=== PATIENT | female | born 1970 | race Caucasian/White ===

== ENCOUNTER → 2019-09-19 17:50 | Outpatient (BNVA) | payer MEDICARE, MEDICAID, SELFPAY | PROVIDERS: Family Provider Nurse Practitioner Family; PCP Nurse Practitioner Family; Visit Provider Nurse Practitioner Family | DX: E11.21 Type 2 diabetes mellitus with diabetic nephropathy (principal); E55.9 Vitamin D deficiency, unspecified; E03.9 Hypothyroidism, unspecified | CPT/HCPCS: 80053; 80061; 82044; 82306; 83036; 84443; 85025 ==

== ENCOUNTER → 2020-02-20 11:57 | Outpatient (BNVA) | payer MEDICARE, MEDICAID, SELFPAY | PROVIDERS: Family Provider Nurse Practitioner Family; PCP Nurse Practitioner Family; Visit Provider Nurse Practitioner Family | DX: E03.9 Hypothyroidism, unspecified (principal); E11.21 Type 2 diabetes mellitus with diabetic nephropathy; E55.9 Vitamin D deficiency, unspecified; M54.5 Low back pain; G89.29 Other chronic pain; G47.00 Insomnia, unspecified; F41.9 Anxiety disorder, unspecified; F32.9 Major depressive disorder, single episode, unspecified; J30.9 Allergic rhinitis, unspecified; E78.5 Hyperlipidemia, unspecified; K21.9 Gastro-esophageal reflux disease without esophagitis; I10 Essential (primary) hypertension; H91.93 Unspecified hearing loss, bilateral | CPT/HCPCS: 80053; 80061; 82306; 83036; 84443; 85025 ==

== ENCOUNTER → 2020-06-26 16:38 | Outpatient (BNVA) | payer MEDICARE, MEDICAID, SELFPAY | PROVIDERS: Family Provider Nurse Practitioner Family; PCP Nurse Practitioner Family; Visit Provider Nurse Practitioner Family | DX: E11.21 Type 2 diabetes mellitus with diabetic nephropathy (principal); E55.9 Vitamin D deficiency, unspecified; M54.5 Low back pain; G89.29 Other chronic pain; G47.00 Insomnia, unspecified | CPT/HCPCS: 80053; 80061; 82306; 83036; 85025 ==

== ENCOUNTER → 2020-10-23 10:48 | Outpatient (BNVA) | payer MEDICARE, MEDICAID, SELFPAY | PROVIDERS: Family Provider Nurse Practitioner Family; PCP Nurse Practitioner Family; Visit Provider Nurse Practitioner Family | DX: E11.21 Type 2 diabetes mellitus with diabetic nephropathy (principal); J30.9 Allergic rhinitis, unspecified; M54.5 Low back pain; E55.9 Vitamin D deficiency, unspecified; G47.00 Insomnia, unspecified; G89.29 Other chronic pain; E03.9 Hypothyroidism, unspecified | CPT/HCPCS: 80053; 80061; 82043; 82306; 83036; 84443; 85025 ==

== ENCOUNTER → 2021-01-16 13:50 | Outpatient (BNVA) | payer MEDICARE, MEDICAID, SELFPAY | PROVIDERS: Family Provider Nurse Practitioner Family; PCP Nurse Practitioner Family; Visit Provider Nurse Practitioner Family | DX: E11.21 Type 2 diabetes mellitus with diabetic nephropathy (principal); E03.9 Hypothyroidism, unspecified; E55.9 Vitamin D deficiency, unspecified; K21.9 Gastro-esophageal reflux disease without esophagitis; F41.9 Anxiety disorder, unspecified; E78.5 Hyperlipidemia, unspecified; F32.9 Major depressive disorder, single episode, unspecified; J30.9 Allergic rhinitis, unspecified; G47.00 Insomnia, unspecified; I10 Essential (primary) hypertension; Z68.41 Body mass index [BMI] 40.0-44.9, adult; Z71.89 Other specified counseling | CPT/HCPCS: 80053; 80061; 82306; 83036; 84443; 85025 ==

== ENCOUNTER → 2021-04-09 13:30 | Outpatient (BNVA) | payer MEDICARE, MEDICAID, SELFPAY | PROVIDERS: Family Provider Nurse Practitioner Family; PCP Nurse Practitioner Family; Visit Provider Nurse Practitioner Family | DX: E03.9 Hypothyroidism, unspecified (principal); E11.21 Type 2 diabetes mellitus with diabetic nephropathy; E55.9 Vitamin D deficiency, unspecified | CPT/HCPCS: 80053; 80061; 82306; 83036; 84443; 85025 ==

== ENCOUNTER → 2021-07-24 11:51 | Outpatient (BNVA) | payer MEDICARE, MEDICAID, SELFPAY | PROVIDERS: Family Provider Nurse Practitioner Family; PCP Nurse Practitioner Family; Visit Provider Nurse Practitioner Family | DX: E11.21 Type 2 diabetes mellitus with diabetic nephropathy (principal); E55.9 Vitamin D deficiency, unspecified; E03.9 Hypothyroidism, unspecified; F41.0 Panic disorder [episodic paroxysmal anxiety]; G47.00 Insomnia, unspecified; E78.5 Hyperlipidemia, unspecified; F41.9 Anxiety disorder, unspecified; F32.9 Major depressive disorder, single episode, unspecified; J30.9 Allergic rhinitis, unspecified; I10 Essential (primary) hypertension; K21.9 Gastro-esophageal reflux disease without esophagitis; G89.29 Other chronic pain; Z68.41 Body mass index [BMI] 40.0-44.9, adult | CPT/HCPCS: 80053; 80061; 82306; 83036; 84443; 85025 ==

== ENCOUNTER → 2022-01-06 11:22 | Outpatient (BNVA) | payer MEDICARE, MEDICAID, SELFPAY | PROVIDERS: Family Provider Nurse Practitioner Family; PCP Nurse Practitioner Family; Visit Provider Nurse Practitioner Family | DX: F41.0 Panic disorder [episodic paroxysmal anxiety] (principal); E11.21 Type 2 diabetes mellitus with diabetic nephropathy; R00.2 Palpitations; F41.9 Anxiety disorder, unspecified; F32.9 Major depressive disorder, single episode, unspecified; E78.5 Hyperlipidemia, unspecified; K21.9 Gastro-esophageal reflux disease without esophagitis; I10 Essential (primary) hypertension; G62.9 Polyneuropathy, unspecified; G47.00 Insomnia, unspecified; M54.9 Dorsalgia, unspecified; G89.29 Other chronic pain; J30.9 Allergic rhinitis, unspecified; G25.81 Restless legs syndrome; R26.81 Unsteadiness on feet; H91.93 Unspecified hearing loss, bilateral; E03.9 Hypothyroidism, unspecified; E55.9 Vitamin D deficiency, unspecified | CPT/HCPCS: 80053; 80061; 83036 ==

== ENCOUNTER → 2022-04-13 08:41 | Outpatient (BNVA) | payer MEDICARE, MEDICAID, SELFPAY | PROVIDERS: Family Provider Nurse Practitioner Family; PCP Nurse Practitioner Family; Visit Provider Nurse Practitioner Family | DX: E11.21 Type 2 diabetes mellitus with diabetic nephropathy (principal); E78.5 Hyperlipidemia, unspecified; E03.9 Hypothyroidism, unspecified; E55.9 Vitamin D deficiency, unspecified; F32.9 Major depressive disorder, single episode, unspecified; G25.81 Restless legs syndrome; G62.9 Polyneuropathy, unspecified; F41.0 Panic disorder [episodic paroxysmal anxiety]; R00.2 Palpitations; I10 Essential (primary) hypertension; G47.00 Insomnia, unspecified | CPT/HCPCS: 80053; 80061; 83036 ==

== ENCOUNTER → 2022-07-14 13:11 | Outpatient (BNVA) | payer MEDICARE, MEDICAID, SELFPAY | PROVIDERS: Family Provider Nurse Practitioner Family; PCP Nurse Practitioner Family; Visit Provider Nurse Practitioner Family | DX: E55.9 Vitamin D deficiency, unspecified (principal); E78.5 Hyperlipidemia, unspecified; E03.9 Hypothyroidism, unspecified; I10 Essential (primary) hypertension; F41.9 Anxiety disorder, unspecified; G25.81 Restless legs syndrome; E11.21 Type 2 diabetes mellitus with diabetic nephropathy; E11.40 Type 2 diabetes mellitus with diabetic neuropathy, unspecified; G89.29 Other chronic pain; F41.0 Panic disorder [episodic paroxysmal anxiety]; G47.00 Insomnia, unspecified | CPT/HCPCS: 80053; 80061; 82306; 83036; 84443 ==

== ENCOUNTER → 2022-10-28 11:04 | Outpatient (BNVA) | payer MEDICARE, MEDICAID, SELFPAY | PROVIDERS: Family Provider Nurse Practitioner Family; PCP Nurse Practitioner Family; Visit Provider Nurse Practitioner Family | DX: R52 Pain, unspecified (principal) | CPT/HCPCS: 73030 ==

== ENCOUNTER → 2023-01-12 11:26 | Outpatient (BNVA) | payer MEDICARE, MEDICAID, SELFPAY | PROVIDERS: Family Provider Nurse Practitioner Family; PCP Nurse Practitioner Family; Visit Provider Nurse Practitioner Family | DX: G62.9 Polyneuropathy, unspecified (principal); E78.5 Hyperlipidemia, unspecified; F41.9 Anxiety disorder, unspecified; E03.9 Hypothyroidism, unspecified; E11.21 Type 2 diabetes mellitus with diabetic nephropathy; E55.9 Vitamin D deficiency, unspecified; I10 Essential (primary) hypertension | CPT/HCPCS: 80053; 80061; 82306; 83036; 84443 ==

== ENCOUNTER 2023-04-12 14:42 | Emergency (ER) | payer MEDICARE, MEDICAID, SELFPAY ==
[2023-04-12 14:47] VITALS: BP 113/78; PULSE 102; RESP 16; TEMP 37.1; O2SAT 97; BMI 38.6
--- NOTE | 2023-04-12 15:18 | XRR_ITS ---
PROCEDURE INFORMATION: Exam: XR Nasal Bones Exam date and time: 04/12/2023 3:33 PM Age: 53 years old Clinical indication: Injury or trauma; Fall; Blunt trauma (contusions or hematomas); Nose; Additional info: Fall/injury TECHNIQUE: Imaging protocol: XR of the nasal bones. Views: Minimum of 3 views COMPARISON: No relevant prior studies available. FINDINGS: Sinuses: Well aerated. No opacification. Bones/joints: No fracture. Soft tissues: Unremarkable. XR/XR nasal bones min 3V [id number] IMPRESSION: Unremarkable.
--- NOTE | 2023-04-12 15:19 | ED_ITS ---
HPI - Fall General: Chief Complaint: Epistaxis Stated Complaint: fall, face injury Time Seen by Provider: 04/12/23 15:03 Source: patient Mode of arrival: ambulatory Limitations: no limitations History of Present Illness: Patient is a 53-year-old female presents to ED today with a complaint of a nose injury/fall. Patient states she has chronically poor vision which causes her to fall. She states on cloudy days, like today, she can hardly see where she is going. Patient states she fell secondary to this today and struck her nose. She states the nose bled for a small amount of time before subsiding. She denies any other injuries or complaints related to the fall. Denies chest pain, shortness of breath, difficulty breathing, palpitations, or presyncopal feelings. Last tetanus is unknown. MD complaint: fall Onset (ago): hour(s) Fall from: standing Fall witnessed: yes, by family Place fall occurred: street Loss of consciousness: None Prolonged down time: no Symptoms prior to fall: none Context: tripped/slipped Location of injury: face (nose) Associated symptoms-after fall: Reports no associated symptoms; Denies abdominal pain, chest pain, headache(s), hematuria, lightheadedness or neck pain Review of Systems Eyes: Reports: change in vision (chronically poor vision); Denies: blurry vision, photophobia, eye discharge, floaters or seeing flashes ENMT: Reports: epistaxis (nose bleed after injury-subsided now) and sinus pain (nose pain/injury); Denies: throat pain, odynophagia, ear or mastoid pain or ear discharge Card: Denies: chest pain, palpitations, lightheadedness, syncope or pre- syncope Resp: Denies: dyspnea or pain on inspiration GI: Denies: abdominal pain : Denies: flank pain or hematuria Musc: Denies: neck pain, back pain, extremity pain or joint pain Neuro: Denies: headache(s), numbness in extremities, weakness in extremities, sensory changes or dizziness PFSH ED PFSH: Medical History Anxiety Back pain, chronic Chronic GERD Diabetes mellitus with nephropathy Enrolled in chronic care management Essential hypertension Glaucoma Hearing loss of both ears Hyperlipidemia Morbid obesity Post-menopausal Psoriasis Vitamin D deficiency Family History Father Diabetes Arthritis Heart disease Social History Smoking and tobacco/nicotine status: never used tobacco/nicotine Second hand smoke exposure: No Alcohol intake: never Substance/Drug Use: never Caregiver/support person: Yes Lives independently: Yes Household members: none Marital status: Single service: No Current occupational status: disabled Current gender identity: Female Special johnie needs: No Agree to transfusion: Yes Female Reproductive History: Para: 0 Spontaneous abortions: No Date of menopause: 05/24/99 Physical Exam Const: COMMON NORMALS: no acute distress, patient oriented x3, no limitations, alert and well nourished GENERAL APPEARANCE: cooperative NUTRITIONAL APPEARANCE: obese ORIENTATION/CONSCIOUSNESS: Yes awake, Yes oriented to person, Yes oriented to place and Yes oriented to time HENMT: COMMON NORMALS: normocephalic, atraumatic, external ears normal and TM's normal bilaterally HEAD & SCALP: normal to inspection, normocephalic and atraumatic; no Charles's sign, no hematoma and no raccoon eyes FACE & SINUS: other (nasal contusion; no bony deformity noted) FACE & SINUS IMAGES: 1. 2. small non-repairable lacerations NOSE: Normal nares present, Normal septum present and No nasal discharge present EXTERNAL EAR: Yes external ears normal TYMPANIC MEMBRANE: TM's normal bilaterally MOUTH: other (no intraoral injuries noted) Eye: COMMON NORMALS: Equal, round and reactive pupils present and EOMs intact bilaterally GENERAL EYE: appearance normal, both eyes and all related structures and normal light reflex PUPIL: Yes Equal, round and reactive pupils present DIRECT OPHTHALMOSCOPY: Yes normal light reflex Neck/C-Spine: COMMON NORMALS: full ROM GENERAL: Yes normal visual inspection CERVICAL SPINE: Yes cervical ROM normal, No pain with cervical ROM, No Cervical spine tenderness, No step off deformity and No Paracervical muscle tenderness Chest: COMMONS NORMALS: normal inspection of the chest and normal palpation of entire chest wall Resp: COMMON NORMALS: normal respiratory effort and clear to auscultation bilaterally AUSCULTATION: clear to auscultation bilaterally Cardio: COMMON NORMALS: regular rate and regular rhythm RATE: regular rate RHYTHM: regular rhythm GI: COMMON NORMALS: Normal to inspection, nondistended, normoactive bowel sounds present, Soft to palpation, non-tender, No hepatosplenomegaly present and no masses INSPECTION: Yes normal to inspection and No abdominal wall ecchymosis AUSCULTATION: Yes normoactive bowel sounds PALPATION: Yes Soft to palpation and Yes No hepatosplenomegaly present Back/Pelvis: COMMON NORMALS: thoracic and lumbar spine normal to inspection, no thoracic nor lumbar tenderness and thoraco-lumbar ROM normal Extremity: COMMON NORMALS: normal to inspection and full ROM GENERAL: Yes normal exam except as noted Neuro: AJAY COMA SCALE: document [facility] findings [place] coma scale eye opening: Spontaneous [place] coma scale verbal response: Orientated Ajay coma scale motor response: Obey commands [place] coma scale total score: 15 COMMON NORMALS: patient oriented x3, CN's II-XII intact bilaterally, moves all extremities, no focal motor deficits, no sensory deficits noted and gait normal SENSORIUM/ORIENTATION: Yes alert, Yes oriented to person, Yes oriented to place and Yes oriented to time SPEECH: speech normal GAIT: Yes Normal gait present Skin: COMMON NORMALS: no rashes or lesions noted GENERAL SKIN EXAM: no rashes or lesions noted TRAUMA: no lacerations or abrasions Course Vital Signs: Vital signs: Vital Signs Temperature 98.8 F 04/12/23 14:47 Pulse Rate 102 H 04/12/23 14:47 Respiratory Rate 16 04/12/23 14:47 Blood Pressure 113/78 04/12/23 14:47 Pulse Oximetry 97 04/12/23 14:47 Oxygen Delivery Me thod Room Air 04/12/23 14:47 MDM - Fall Medical Decision Making XR negative. Will be allowed discharge. Tetanus was updated. Medical Records I reviewed the patient's medical records. Lab Data Radiology Impressions Nasal Bones X-Ray 04/12/23 15:18 IMPRESSION: Unremarkable. All radiology interpretation(s) finalized by discharge Discharge Plan Discharge Patient Disposition: Home Clinical Impression: Contusion of nose Qualifiers: Encounter type: initial encounter Qualified Code(s): S00.33XA - Contusion of nose, initial encounter Condition: Stable Prescriptions: No Action aspirin [Adult Low Dose Aspirin] 81 mg tablet,delayed release (DR/EC) 81 mg PO ONCE (DME) cane Device See Rx Instructions .Route Qty: 1 0RF Rx Instructions: As directed diazepam [Valium] 5 mg tablet 5 mg PO BID PRN (Reason: anxiety) Qty: 20 0RF albuterol sulfate 90 mcg/actuation HFA aerosol inhaler See Rx Instructions .ROUTE .COMPLEX Qty: 8.5 2RF Dose Instruction: inhale TWO puffs into lungs EVERY 6 HOURS NEEDED FOR SHORTNESS OF BREATH OR wheezing Rx Instructions: inhale TWO puffs into lungs EVERY 6 HOURS NEEDED FOR SHORTNESS OF BREATH OR wheezing atorvastatin 20 mg tablet 20 mg PO DAILY 90 Days Qty: 90 1RF betamethasone dipropionate 0.05 % cream 1 applic TOPICAL BID PRN (Reason: skin irritation) Qty: 45 3RF (DME) OneTouch Ultra Test Strip See Rx Instructions .ROUTE .COMPLEX Qty: 100 11RF Dose Instruction: USE TO test TWICE DAILY AND NEEDED FOR hypoglycemia DIRECTED Rx Instructions: USE TO test TWICE DAILY AND NEEDED FOR hypoglycemia DIRECTED (DME) blood-glucose meter [OneTouch Ultra2 Meter] Kit See Rx Instructions .ROUTE .MEDSUPPLY Qty: 1 0RF Rx Instructions: To test 2 times per day and prn hpoglycemia brimonidine 0.15 % drops See Rx Instructions .ROUTE .COMPLEX Qty: 10 2RF Dose Instruction: instill ONE DROP in BOTH eyes TWICE DAILY Rx Instructions: instill ONE DROP in BOTH eyes TWICE DAILY buspirone 10 mg tablet 10 mg PO TID 90 Days Qty: 270 1RF cyclobenzaprine 10 mg tablet See Rx Instructions .ROUTE .COMPLEX Qty: 90 1RF Dose Instruction: TAKE ONE TABLET BY MOUTH THREE TIMES DAILY NEEDED FOR MUSCLE SPASMS Rx Instructions: TAKE ONE TABLET BY MOUTH THREE TIMES DAILY NEEDED FOR MUSCLE SPASMS Farxiga 10 mg tablet 10 mg PO DAILY 90 Days Qty: 90 1RF diclofenac sodium [Arthritis Pain (diclofenac)] 1 % gel 4 g topical QID Qty: 100 2RF Rx Instructions: apply to AREA NEEDED. diclofenac sodium 75 mg tablet,delayed release (DR/EC) See Rx Instructions .ROUTE .COMPLEX Qty: 60 2RF Dose Instruction: TAKE ONE TABLET BY MOUTH TWICE DAILY NEEDED FOR PAIN Rx Instructions: TAKE ONE TABLET BY MOUTH TWICE DAILY NEEDED FOR PAIN famotidine 20 mg tablet 20 mg PO BID 90 Days Qty: 180 1RF fluticasone propionate 50 mcg/actuation spray,suspension See Rx Instructions .ROUTE .COMPLEX Qty: 16 3RF Dose Instruction: instill TWO SPRAYS IN EACH NOSTRIL ONCE daily Rx Instructions: instill TWO SPRAYS IN EACH NOSTRIL ONCE daily gabapentin 300 mg capsule See Rx Instructions .ROUTE .COMPLEX Qty: 180 3RF Dose Instruction: TAKE TWO CAPSULES BY MOUTH IN THE MORNING, AND TAKE TWO CAPSULES AT NOON THEN TAKE TWO CAPSULES IN THE EVENING Rx Instructions: TAKE TWO CAPSULES BY MOUTH IN THE MORNING, AND TAKE TWO CAPSULES AT NOON THEN TAKE TWO CAPSULES IN THE EVENING glipizide 10 mg tablet extended release 24hr See Rx Instructions .ROUTE .COMPLEX Qty: 60 3RF Dose Instruction: TAKE ONE TABLET BY MOUTH TWICE DAILY Rx Instructions: TAKE ONE TABLET BY MOUTH TWICE DAILY (DME) Ultra Thin Lancets 31 gauge misc See Rx Instructions .ROUTE .MEDSUPPLY Qty: 100 11RF Rx Instructions: As directed; to test 2 x day and prn hypoglycemia levocetirizine [Xyzal] 5 mg tablet 5 mg PO DAILY 90 Days Qty: 90 3RF levothyroxine 75 mcg tablet See Rx Instructions .ROUTE .COMPLEX Qty: 30 5RF Dose Instruction: TAKE ONE TABLET BY MOUTH EVERY DAY Rx Instructions: TAKE ONE TABLET BY MOUTH EVERY DAY Victoza 3-Dutch 0.6 mg/0.1 mL (18 mg/3 mL) pen injector See Rx Instructions .ROUTE .COMPLEX Qty: 9 5RF Dose Instruction: inject 1.8 MG (0.3ml) SUBCUTANEOUSLY EVERY 24 HOURS Rx Instructions: inject 1.8 MG (0.3ml) SUBCUTANEOUSLY EVERY 24 HOURS lisinopril-hydrochlorothiazide 10-12.5 mg tablet 1 tab PO DAILY 90 Days Qty: 90 1RF montelukast 10 mg tablet 10 mg PO DAILY 90 Days Qty: 90 1RF (DME) pen needle, diabetic [UltiCare Pen Needle] 32 gauge x 5/32 needle See Rx Instructions .ROUTE .COMPLEX Qty: 100 6RF Dose Instruction: USE NEEDED TO inject insulin Rx Instructions: USE NEEDED TO inject insulin ropinirole 0.5 mg tablet 0.5 mg PO .QHS 90 Days Qty: 90 1RF tramadol 50 mg tablet 50 mg PO TID PRN (Reason: pain) Qty: 90 0RF trazodone 100 mg tablet 100 mg PO DAILY 90 Days Qty: 90 1RF venlafaxine 150 mg capsule,extended release 24hr 150 mg PO DAILY 90 Days Qty: 90 1RF venlafaxine 75 mg capsule,extended release 24hr 75 mg PO DAILY 90 Days Qty: 90 1RF ergocalciferol (vitamin D2) 50,000 unit tablet 50,000 unit PO DIRECTED Rx Instructions: 1 every week quanity 4 nystatin 100,000 unit/gram cream 1 applic topical BID Qty: 30 1RF Rx Instructions: apply thin layer under breast, keep dry in between applications. Levemir FlexPen 100 unit/mL (3 mL) insulin pen See Rx Instructions .ROUTE .COMPLEX Qty: 36 0RF Dose Instruction: inject 60 unit (0.6 ML) subcutaneously twice a DAY FOR 30 DAYS] Rx Instructions: inject 60 unit (0.6 ML) subcutaneously twice a DAY FOR 30 DAYS] Discharge Orders: Discharge ED (Routine); Ordered 04/12/23 Ordered By: Louise Velez Referrals: Lyn Edwards FNP [Primary Care Provider] - Patient Instructions: Nasal Contusion (ED) Coding Level of Care Code ED [facility] for Lisbet Owens
[2023-04-12] MEDS: tetanus-dipt-pertussis 0.5 mL SDV IM (15:43)
== END 2023-04-12 16:20 | disposition home or self-care (01) ==
PROVIDERS: Emergency Provider Physician Assistant; PCP Nurse Practitioner Family
DX: S00.33XA Contusion of nose, initial encounter (principal); Z79.4 Long term (current) use of insulin; Z79.84 Long term (current) use of oral hypoglycemic drugs; E11.21 Type 2 diabetes mellitus with diabetic nephropathy; I10 Essential (primary) hypertension; E78.5 Hyperlipidemia, unspecified; W19.XXXA Unspecified fall, initial encounter; Z23 Encounter for immunization
CPT/HCPCS: 70160; 90715; 99283

== ENCOUNTER → 2023-06-15 12:06 | Outpatient (BNVA) | payer MEDICARE, MEDICAID, SELFPAY | PROVIDERS: PCP Nurse Practitioner Family; Visit Provider Nurse Practitioner Family | DX: E78.5 Hyperlipidemia, unspecified (principal); E11.21 Type 2 diabetes mellitus with diabetic nephropathy; F41.9 Anxiety disorder, unspecified; F32.9 Major depressive disorder, single episode, unspecified; I10 Essential (primary) hypertension; R00.2 Palpitations; E03.9 Hypothyroidism, unspecified; E55.9 Vitamin D deficiency, unspecified | CPT/HCPCS: 80053; 80061; 82306; 83036; 84443 ==

== ENCOUNTER → 2023-10-04 13:09 | Outpatient (BNVA) | payer MEDICARE, MEDICAID, SELFPAY | PROVIDERS: PCP Nurse Practitioner Family; Visit Provider Nurse Practitioner Family | DX: F41.9 Anxiety disorder, unspecified (principal); F32.9 Major depressive disorder, single episode, unspecified; F43.21 Adjustment disorder with depressed mood; I10 Essential (primary) hypertension; E78.5 Hyperlipidemia, unspecified; E11.21 Type 2 diabetes mellitus with diabetic nephropathy; E03.9 Hypothyroidism, unspecified; E55.9 Vitamin D deficiency, unspecified | CPT/HCPCS: 80053; 80061; 82306; 83036; 84443; 85025 ==

== ENCOUNTER → 2024-01-14 11:35 | Outpatient (BNVA) | payer MEDICARE, MEDICAID, SELFPAY | PROVIDERS: PCP Nurse Practitioner Family; Visit Provider Nurse Practitioner Family | DX: E78.5 Hyperlipidemia, unspecified (principal); E11.21 Type 2 diabetes mellitus with diabetic nephropathy; I10 Essential (primary) hypertension; E03.9 Hypothyroidism, unspecified | CPT/HCPCS: 80053; 80061; 83036; 85025 ==

== ENCOUNTER → 2024-05-01 10:44 | Outpatient (BNVA) | payer MEDICARE, MEDICAID, SELFPAY | PROVIDERS: PCP Nurse Practitioner Family; Visit Provider Nurse Practitioner Family | DX: E11.9 Type 2 diabetes mellitus without complications (principal); E55.9 Vitamin D deficiency, unspecified | CPT/HCPCS: 80053; 80061; 82043; 82306; 82607; 83036; 84443; 85025 ==

== ENCOUNTER → 2024-09-05 13:41 | Outpatient (BNVA) | payer MEDICARE, MEDICAID, SELFPAY | PROVIDERS: PCP Nurse Practitioner Family; Visit Provider Nurse Practitioner Family | DX: E78.5 Hyperlipidemia, unspecified (principal); E11.21 Type 2 diabetes mellitus with diabetic nephropathy; E55.9 Vitamin D deficiency, unspecified | CPT/HCPCS: 80053; 80061; 82306; 82607; 83036; 84443; 85025 ==

== ENCOUNTER → 2024-12-07 09:26 | Outpatient (BNVA) | payer MEDICARE, MEDICAID, SELFPAY | PROVIDERS: PCP Nurse Practitioner Family; Visit Provider Nurse Practitioner Family | DX: M25.561 Pain in right knee (principal); E11.9 Type 2 diabetes mellitus without complications; E55.9 Vitamin D deficiency, unspecified; E11.21 Type 2 diabetes mellitus with diabetic nephropathy; E78.5 Hyperlipidemia, unspecified | CPT/HCPCS: 73562; 80053; 80061; 82306; 82607; 83036; 84443; 85025 ==

== ENCOUNTER → 2025-03-13 10:52 | Outpatient (BNVA) | payer MEDICARE, MEDICAID, SELFPAY | PROVIDERS: PCP Nurse Practitioner Family; Visit Provider Nurse Practitioner Family | DX: E11.21 Type 2 diabetes mellitus with diabetic nephropathy (principal); E55.9 Vitamin D deficiency, unspecified; E78.5 Hyperlipidemia, unspecified | CPT/HCPCS: 80053; 80061; 82306; 82607; 83036; 84439; 84443; 85025 ==